=== PATIENT | female | born 1975 ===

== ENCOUNTER 2018-08-03 04:13 | Inpatient (IN) | payer MEDICAID ==
[2018-08-03] MEDS ORDERED: NS 2,000 ML IV ONE (04:22)
[2018-08-03] MEDS ORDERED: LORazepam 2 MG/ML INJ IVP ONE ×2 (04:22→05:28)
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
[2018-08-03 04:38] LABS: PLATELET COUNT 153 10^3/uL (150-400)
[2018-08-03 04:45] LABS: INR 0.99 (0.83-1.16); PROTIME(PATIENT) 13.3 SEC (12.0-15.0)
[2018-08-03] MEDS ORDERED: MAGNESIUM SULF 2 GM/WATER 50 ML IV ONE (05:25)
[2018-08-03] MEDS ORDERED: LORazepam 1 MG TAB PO PRN (05:25)
[2018-08-03] MEDS ORDERED: ONDANSETRON 4 MG/2 ML VIAL IVP ONE ×2 (05:28→05:29)
[2018-08-03] MEDS: LORazepam 2 MG/ML INJ IVP PRN ×7 (05:34→22:58)
[2018-08-03] MEDS ORDERED: FLUMAZENIL 0.5 MG/5 ML MDV IVP PRN (07:48)
[2018-08-03] MEDS ORDERED: ONDANSETRON 4 MG/2 ML VIAL IVP PRN (07:49)
[2018-08-03] MEDS ORDERED: PROMETHAZINE HCL 25 MG/ML INJ IVP PRN (07:49)
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
[2018-08-03] MEDS: THIAMINE HCL 500 MG in NS 100 ML IV SCH (09:54)
[2018-08-03] MEDS: NS 1,000 ML IV SCH ×2 (09:55→18:06)
[2018-08-03] MEDS ORDERED: CARBOXYMETHYLCELLULOSE 1% 0.4 ML DROPERETTE EACHEYE PRN (12:36)
[2018-08-03] MEDS: PANTOPRAZOLE SODIUM 40 MG TAB PO SCH ×2 (14:30→20:51)
[2018-08-03] MEDS: ONDANSETRON DISINTEGRATING 4 MG TAB PO PRN (17:05)
[2018-08-03] MEDS: ALBUTEROL 60 PUFFS/8 GM MDI IH PRN (17:26)
[2018-08-03] MEDS: MAG HYDROX/AL HYDROX/SIMETH 30 ML UDCUP PO PRN (19:19)
[2018-08-03] MEDS: ACETAMINOPHEN 325 MG TAB PO PRN (22:59)
[2018-08-04] MEDS: LORazepam 2 MG/ML INJ IVP PRN ×8 (00:46→14:40)
[2018-08-04] MEDS: MAG HYDROX/AL HYDROX/SIMETH 30 ML UDCUP PO PRN (04:56)
[2018-08-04] MEDS: ONDANSETRON DISINTEGRATING 4 MG TAB PO PRN (04:57)
--- NOTE | 2018-08-04 06:56 | CPEKG ---
Test Reason : OPEN Blood Pressure : / mmHG Vent. Rate : 096 BPM Atrial Rate : 096 BPM P-R Int : 120 ms QRS Dur : 077 ms QT Int : 356 ms P-R-T Axes : 053 -07 038 degrees QTc Int : 450 ms Sinus rhythm Confirmed by Derick Marques ([id number]) on 08/04/2018 6:55:45 AM Referred By: Confirmed By:Derick Marques
[2018-08-04] MEDS: THIAMINE HCL 500 MG in NS 100 ML IV SCH (08:09)
[2018-08-04] MEDS: ALBUTEROL 60 PUFFS/8 GM MDI IH PRN (08:15)
[2018-08-04] MEDS: ACETAMINOPHEN 325 MG TAB PO PRN (10:07)
[2018-08-04] MEDS: PANTOPRAZOLE SODIUM 40 MG TAB PO SCH (10:08)
[2018-08-04 11:48] VITALS: BP 127/83
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
--- NOTE | 2018-08-04 15:35 | ASMTCAGE ---
CAGE Do you feel you ought to Answers: No cut down on your drinking or drug use? Do people annoy you by Answers: Yes criticizing your drinking or drug use? Do you drink or use drugs Answers: Yes first thing in the morning ([employer])? Date Signed: 08/04/2018 03:35 PM Electronically Signed By:NATTY Rizo
[2018-08-04] MEDS ORDERED: LORazepam 1 MG TAB PO PRN (15:41)
--- NOTE | 2018-08-04 15:46 | HOSPPROG ---
Hospitalist Progress Note Assessment/Plan: 42 yo F w alcoholism, likely benzodiazepine abuse here w mild etoh withdrawal withdrawal: less tachy alert dc CIWA anxiety: repeatedly asking for benzos change to ativan 1 po q 4 follow nausea/vomiting: not clear that this is actually happening dc IVF check labs in AM proph: ambulatory dispo: change to inpt Subjective: claims vomiting "everything she ate" today. not seen by nursing. not tachycardic Objective: Vital Signs Temp Pulse Resp BP Pulse Ox 36.8 C 99 18 127/83 H 100 08/04/18 11:47 08/04/18 11:47 08/04/18 11:47 08/04/18 11:47 08/04/18 11:47 08/03/18 08/04/18 08/05/18 05:59 05:59 05:59 Intake Total 1880 Output Total 0 775 Balance -170 -775 PT 13.3 SEC (12.0-15.0) 08/03/18 04:25 INR 0.99 (0.83-1.16) 08/03/18 04:25 - Physical Exam Constitutional: not in pain Eyes: PERRL, anicteric sclera Ears, Nose, Mouth, Throat: hearing normal Cardiovascular: regular rate and rhythym, no murmur, rub, or gallop, No tachycardia Respiratory: no respiratory distress, no rales or rhonchi Gastrointestinal: normoactive bowel sounds, soft, non-tender abdomen, no palpable masses Genitourinary: no bladder fullness, No frausto in urethra Skin: warm, normal color Musculoskeletal: full muscle strength Neurologic: AAOx3 Psychiatric: No not anxious ICD10 Worksheet Patient Problems: Problems Problem Status Onset Alcohol withdrawal Acute Dehydration Acute Nausea and vomiting Acute Abdominal pain Active
--- NOTE | 2018-08-04 16:20 | ASMTCMCOM ---
CM Note CM Note Notes: Pt left AMA. Date Signed: 08/04/2018 04:19 PM Electronically Signed By:NATTY Rizo
--- NOTE | 2018-08-05 16:10 | GDS ---
DISCHARGE DIAGNOSES: 1. Benzodiazepine use/abuse. 2. History of alcoholism. 3. Reflux. Please see admission history and physical by Dr. Claudia Fleming. The patient presented with anxiety, t remors with an alcohol level of 44 with concern for withdrawal. She was placed on CIWA protocol. He r CIWA protocol scores were relatively low. There was significant concern that she was manufacturing her symptoms. When I elected to discontinue her IV benzodiazepine, she left against medical advice. This is consistent with benzodiazepine addiction. /[id number]/MODL
[2018-08-06] MEDS ORDERED: THIAMINE HCL 100 MG TAB PO SCH (07:48)
== END 2018-08-04 16:17 | disposition left against medical advice (07) | DRG 770 ==
LOC: EDUNIT# → F3E 07:42 → OBSVTOIN 08-04 15:42
PROVIDERS: ADMIT Family Medicine; ATTEND Internal Medicine
DX: F19.10 Other psychoactive substance abuse, uncomplicated (principal); F10.230 Alcohol dependence with withdrawal, uncomplicated; K70.10 Alcoholic hepatitis without ascites; D64.9 Anemia, unspecified; K21.9 Gastro-esophageal reflux disease without esophagitis; F41.9 Anxiety disorder, unspecified; J45.909 Unspecified asthma, uncomplicated; F31.9 Bipolar disorder, unspecified; E86.0 Dehydration; Y90.2 Blood alcohol level of 40-59 mg/100 ml; Z87.820 Personal history of traumatic brain injury; Z86.59 Personal history of other mental and behavioral disorders
CPT/HCPCS: 80305; 84484-PO; 96365; G0378; G0480; J2060; J2405; J3411; J3475